=== PATIENT | female | born 1975 | race Caucasian/White ===

== ENCOUNTER 2017-10-11 11:58 | Emergency (ER) | payer SELFPAY ==
[~2017-10-11] VITALS: Ht 157.5 cm; Wt 81.7 kg
[~2017-10-11 11:58] MED LIST: ALBU8HFA2 INH; BENZ100A PO; CODGUAEL PO; CYCL10 PO; HYDACE5 PO; IBUP800 PO; NAPR500 PO; NAPR500EC PO; Norco 10-325 T1 EACH PO; ONDA4 PO; OXYACE5T PO
[2017-10-11] MEDS ORDERED: Robaxin500 MG PO (13:05)
== END 2017-10-11 13:15 | disposition home or self-care (01) ==
LOC: ER 11:58
DX: M54.16 Radiculopathy, lumbar region (principal); F17.200 Nicotine dependence, unspecified, uncomplicated
CPT/HCPCS: 81025; 96372; 99283; J1885

== ENCOUNTER 2018-12-17 12:38 | Emergency (ER) | payer BC ==
[~2018-12-17] VITALS: Ht 157.5 cm; Wt 83.9 kg
[~2018-12-17 12:38] MED LIST changes: +Robaxin500 MG PO
[2018-12-17] MEDS ORDERED: GABA300 PO (12:58)
[2018-12-17] MEDS ORDERED: Norco 5-325 Ta1 EACH PO (12:58)
[2018-12-17] MEDS ORDERED: Valtrex1000 MG PO (13:31)
== END 2018-12-17 13:36 | disposition home or self-care (01) ==
LOC: ER 12:38
DX: B00.1 Herpesviral vesicular dermatitis (principal); L25.9 Unspecified contact dermatitis, unspecified cause; Z79.899 Other long term (current) drug therapy; F17.210 Nicotine dependence, cigarettes, uncomplicated
CPT/HCPCS: 99282

== ENCOUNTER → 2020-12-16 | Outpatient (CLI) | payer BC ==
[~2020-12-16] MED LIST changes: +GABA300 PO; +Norco 5-325 Ta1 EACH PO; +Valtrex1000 MG PO
== END ==
LOC: LAB SHORT 07:45
DX: N93.8 Other specified abnormal uterine and vaginal bleeding (principal)
CPT/HCPCS: 88305

== ENCOUNTER 2020-12-29 08:45 | Day surgery (SDC) | payer BC ==
[~2020-12-29] VITALS: Ht 154.9 cm; Wt 78.5 kg
--- NOTE | 2020-12-29 09:37 | NUR ---
Ambulatory in Day Surgery. History, Chart, Medications and Allergies reviewed before start of procedure. Lungs clear T/O to Auscultation. Patient confirms NPO status and agrees with scheduled surgery.
--- NOTE | 2020-12-29 12:30 | NUR ---
Patient up to Ambulate independently. Gait steady. Discharge instructions reviewed with patient. Patient verbalizes understanding. Copy given to patient to take home. Patient States Post-Procedure ride home has been arranged. Discharged via wheelchair to private car for ride home. PT HAAD SCANT BLEEDING ON JESSICA PAD NEW PAD GIVEN PT IV DCD AND PT READY TO GO HOME
--- NOTE | 2020-12-30 07:41 | NUR ---
12/30/20 0741 Nehal Blanton: EDIT CHART.
== END 2020-12-29 22:44 | disposition home or self-care (01) ==
LOC: ORSCMMR 08:45 → ORD 09:30 → ORSCMMR 22:44
PROVIDERS: Obstetrics & Gynecology
PROC: 0U5B8ZZ Destruction of Endometrium, Via Natural or Artificial Opening Endoscopic (ICD-10-PCS; principal; 2020-12-29 09:30)
DX: N93.8 Other specified abnormal uterine and vaginal bleeding (principal); F17.210 Nicotine dependence, cigarettes, uncomplicated; Z79.899 Other long term (current) drug therapy; J44.9 Chronic obstructive pulmonary disease, unspecified; K21.9 Gastro-esophageal reflux disease without esophagitis; E66.9 Obesity, unspecified; Z68.32 Body mass index [BMI] 32.0-32.9, adult
CPT/HCPCS: J1100; J1885; J2250; J2405; J2704; J3010; J7120

== ENCOUNTER → 2022-03-23 | Outpatient (CLI) | payer BC | END | disposition home or self-care (01) | LOC: LAB SHORT 12:13 → LAB 12:13 | DX: E53.8 Deficiency of other specified B group vitamins (principal) | CPT/HCPCS: 82607; 82746 ==

== ENCOUNTER 2023-02-09 03:14 | Day surgery (SDC) | payer BC ==
[2023-02-09 14:20] VITALS: BP 150/94
[2023-02-10] MEDS ORDERED: BUPROPION XL150 M1 PO (11:33)
[2023-02-10] MEDS ORDERED: OXYC10TA19 PO (11:33)
== END 2023-02-09 14:20 | disposition home or self-care (01) ==
LOC: ATC 03:14
DX: A49.01 Methicillin susceptible Staphylococcus aureus infection, unspecified site (principal)
CPT/HCPCS: J0696

== ENCOUNTER 2023-02-11 11:06 | Day surgery (SDC) | payer BC ==
[~2023-02-11 11:06] MED LIST changes: +BUPROPION XL150 M1 PO; +OXYC10TA19 PO
[2023-02-11 11:42] VITALS: BP 132/90
== END 2023-02-11 11:47 | disposition home or self-care (01) ==
LOC: ATC 11:06
DX: T81.42XA Infection following a procedure, deep incisional surgical site, initial encounter (principal); B95.61 Methicillin susceptible Staphylococcus aureus infection as the cause of diseases classified elsewhere; Y83.8 Other surgical procedures as the cause of abnormal reaction of the patient, or of later complication, without mention of misadventure at the time of the procedure
CPT/HCPCS: 96374; J0696

== ENCOUNTER 2023-02-12 03:32 | Day surgery (SDC) | payer BC ==
[2023-02-12 10:57] VITALS: BP 120/88
[2023-02-13] MEDS ORDERED: CEFTRIAXONE2 G1 IV (14:27)
== END 2023-02-12 11:05 | disposition home or self-care (01) ==
LOC: ATC 03:32
DX: T81.42XA Infection following a procedure, deep incisional surgical site, initial encounter (principal)
CPT/HCPCS: J0696

== ENCOUNTER 2023-02-13 03:11 | Day surgery (SDC) | payer BC ==
[2023-02-13 11:58] VITALS: BP 142/85
[2023-02-13 12:37] LABS: BASOPHILS ABSOLUTE AUTO 0.08 K/mm3 (0.00-0.23); BASOPHILS PERCENT AUTO 1 % (0-2); EOSINOPHILS ABSOLUTE AUTO 0.55 K/mm3 (0.00-0.68); EOSINOPHILS PERCENT AUTO 7 % (0-6); Hematocrit 33.2 % (33.0-51.0); IMMATURE GRAN ABSOLUTE AUTO 0.03 K/mm3 (0.00-0.10); IMMATURE GRAN PERCENT AUTO 0 % (0-1); LYMPHOCYTES ABSOLUTE AUTO 1.22 K/mm3 (0.84-5.20); LYMPHOCYTES PERCENT AUTO 16 % (21-46); MONOCYTES ABSOLUTE AUTO 0.58 K/mm3 (0.16-1.47); MONOCYTES PERCENT AUTO 8 % (4-13); Mean Corpuscular HGB 30.6 pg (26.0-34.0); Mean Corpuscular HGB Conc 33.1 g/dL (31.5-36.5); Mean Corpuscular Volume 92 fL (80-100); Mean Platelet Volume 10.3 fL (9.1-12.4); NEUTROPHILS ABSOLUTE AUTO 5.11 K/mm3 (1.96-9.15); NEUTROPHILS PERCENT AUTO 67 % (41-73); Platelet Count 370 K/mm3 (150-400); RDW Coefficient Variation 12.6 % (11.7-14.2); RDW Standard Deviation 42.8 fL (35.1-46.3); White Blood Cell Count 7.57 K/mm3 (4.00-11.30)
[2023-02-13 13:01] LABS: Albumin, Blood 2.9 g/dL (3.4-5.0); Albumin/Globulin Ratio 0.7 (0.8-1.8); Bilirubin, Total 0.3 mg/dL (0.1-1.0); Bun/Creatinine Ratio 15.5 (12.0-20.0); C-REACTIVE PROTEIN, EXT RANGE 0.767 mg/dL (0.000-0.300); Calcium, Blood 8.7 mg/dL (8.5-10.1); Creatinine, Blood 0.77 mg/dL (0.40-1.00); Globulin, Blood 3.9 g/dL (2.2-4.0); Total Protein, Blood 6.8 g/dL (6.4-8.2)
[2023-02-13] MEDS ORDERED: CEFTRIAXONE2 G1 IV (14:27)
== END 2023-02-13 12:00 | disposition home or self-care (01) ==
LOC: ATC 03:11
PROVIDERS: Specialist
DX: T81.42XA Infection following a procedure, deep incisional surgical site, initial encounter (principal)
CPT/HCPCS: 80053; 85025; 85651; 86140; 96374; J0696

== ENCOUNTER 2023-02-13 10:53 | Day surgery (SDC) | payer BC ==
[2023-02-13] MEDS ORDERED: CEFTRIAXONE2 G1 IV (14:27)
== END 2023-02-13 22:41 | disposition home or self-care (01) ==
LOC: WOUND 10:53
DX: T81.41XD Infection following a procedure, superficial incisional surgical site, subsequent encounter (principal); T81.31XD Disruption of external operation (surgical) wound, not elsewhere classified, subsequent encounter
CPT/HCPCS: G0463

== ENCOUNTER 2023-02-14 03:54 | Day surgery (SDC) | payer BC ==
[~2023-02-14 03:54] MED LIST changes: +CEFTRIAXONE2 G1 IV
[2023-02-14 10:57] VITALS: BP 139/88
== END 2023-02-14 11:03 | disposition home or self-care (01) ==
LOC: ATC 03:54
DX: T81.42XA Infection following a procedure, deep incisional surgical site, initial encounter (principal); B95.61 Methicillin susceptible Staphylococcus aureus infection as the cause of diseases classified elsewhere; Z87.891 Personal history of nicotine dependence; Z79.899 Other long term (current) drug therapy
CPT/HCPCS: 96374; J0696

== ENCOUNTER 2023-02-15 03:37 | Day surgery (SDC) | payer BC ==
[2023-02-15 09:54] VITALS: BP 118/84
== END 2023-02-15 09:54 | disposition home or self-care (01) ==
LOC: ATC 03:37
DX: T81.42XA Infection following a procedure, deep incisional surgical site, initial encounter (principal); B95.61 Methicillin susceptible Staphylococcus aureus infection as the cause of diseases classified elsewhere; Z79.899 Other long term (current) drug therapy
CPT/HCPCS: 96374; J0696

== ENCOUNTER 2023-02-16 02:46 | Day surgery (SDC) | payer BC ==
[2023-02-16 10:14] VITALS: BP 126/78; BP 138/84
== END 2023-02-16 10:25 | disposition home or self-care (01) ==
LOC: ATC 02:46
DX: T81.42XA Infection following a procedure, deep incisional surgical site, initial encounter (principal); A49.01 Methicillin susceptible Staphylococcus aureus infection, unspecified site
CPT/HCPCS: 96374; J0696

== ENCOUNTER → 2023-02-16 | Day surgery (SDC) | payer BC | LOC: WOUND 03:13 | DX: T81.31XD Disruption of external operation (surgical) wound, not elsewhere classified, subsequent encounter (principal); T81.41XD Infection following a procedure, superficial incisional surgical site, subsequent encounter; Y83.8 Other surgical procedures as the cause of abnormal reaction of the patient, or of later complication, without mention of misadventure at the time of the procedure | CPT/HCPCS: A9270 ==

== ENCOUNTER 2023-02-17 00:59 | Day surgery (SDC) | payer BC | END 2023-02-17 11:00 | disposition home or self-care (01) | LOC: ATC 00:59 | DX: A49.01 Methicillin susceptible Staphylococcus aureus infection, unspecified site (principal) | CPT/HCPCS: 96374; J0696 ==

== ENCOUNTER 2023-02-18 06:21 | Day surgery (SDC) | payer BC ==
[2023-02-18 11:05] VITALS: BP 130/78
== END 2023-02-18 11:10 | disposition home or self-care (01) ==
LOC: ATC 06:21
DX: T81.42XA Infection following a procedure, deep incisional surgical site, initial encounter (principal); A49.01 Methicillin susceptible Staphylococcus aureus infection, unspecified site
CPT/HCPCS: 96374; J0696

== ENCOUNTER 2023-02-22 02:56 | Day surgery (SDC) | payer BC ==
[2023-02-22 10:52] VITALS: BP 136/96
== END 2023-02-22 11:13 | disposition home or self-care (01) ==
LOC: ATC 02:56
DX: T81.42XA Infection following a procedure, deep incisional surgical site, initial encounter (principal); B95.61 Methicillin susceptible Staphylococcus aureus infection as the cause of diseases classified elsewhere
CPT/HCPCS: 96365; J0696

== ENCOUNTER 2023-02-24 06:05 | Day surgery (SDC) | payer BC ==
[2023-02-24 10:20] VITALS: BP 138/86
== END 2023-02-24 10:43 | disposition home or self-care (01) ==
LOC: ATC 06:05
DX: T81.42XA Infection following a procedure, deep incisional surgical site, initial encounter (principal); B95.61 Methicillin susceptible Staphylococcus aureus infection as the cause of diseases classified elsewhere; Z87.891 Personal history of nicotine dependence; Z79.899 Other long term (current) drug therapy
CPT/HCPCS: J0696

== ENCOUNTER 2023-02-25 02:44 | Day surgery (SDC) | payer BC ==
[2023-02-25 10:35] VITALS: BP 128/78
== END 2023-02-25 10:58 | disposition home or self-care (01) ==
LOC: ATC 02:44
DX: T81.42XA Infection following a procedure, deep incisional surgical site, initial encounter (principal); B95.61 Methicillin susceptible Staphylococcus aureus infection as the cause of diseases classified elsewhere
CPT/HCPCS: J0696

== ENCOUNTER 2023-02-28 02:58 | Day surgery (SDC) | payer BC ==
[2023-02-28 08:10] VITALS: BP 130/80
== END 2023-02-28 08:25 | disposition home or self-care (01) ==
LOC: ATC 02:58
DX: A49.01 Methicillin susceptible Staphylococcus aureus infection, unspecified site (principal); Z87.891 Personal history of nicotine dependence
CPT/HCPCS: J0696

== ENCOUNTER 2023-03-12 01:18 | Day surgery (SDC) | payer BC ==
[2023-03-12 10:40] VITALS: BP 148/97
== END 2023-03-12 11:04 | disposition home or self-care (01) ==
LOC: ATC 01:18
DX: T81.42XA Infection following a procedure, deep incisional surgical site, initial encounter (principal); B95.61 Methicillin susceptible Staphylococcus aureus infection as the cause of diseases classified elsewhere; Z87.891 Personal history of nicotine dependence; Z79.899 Other long term (current) drug therapy
CPT/HCPCS: 96365; J0696

== ENCOUNTER 2023-03-13 03:13 | Day surgery (SDC) | payer BC ==
[2023-03-13 10:50] VITALS: BP 140/90
[2023-03-13 11:28] LABS: BASOPHILS ABSOLUTE AUTO 0.05 K/mm3 (0.00-0.23); BASOPHILS PERCENT AUTO 1 % (0-2); EOSINOPHILS ABSOLUTE AUTO 0.53 K/mm3 (0.00-0.68); EOSINOPHILS PERCENT AUTO 9 % (0-6); Hematocrit 37.4 % (33.0-51.0); Hemoglobin 12.5 g/dL (11.5-16.0); IMMATURE GRAN ABSOLUTE AUTO 0.01 K/mm3 (0.00-0.10); IMMATURE GRAN PERCENT AUTO 0 % (0-1); LYMPHOCYTES ABSOLUTE AUTO 1.32 K/mm3 (0.84-5.20); LYMPHOCYTES PERCENT AUTO 23 % (21-46); MONOCYTES ABSOLUTE AUTO 0.49 K/mm3 (0.16-1.47); MONOCYTES PERCENT AUTO 9 % (4-13); Mean Corpuscular HGB 29.6 pg (26.0-34.0); Mean Corpuscular HGB Conc 33.4 g/dL (31.5-36.5); Mean Corpuscular Volume 88 fL (80-100); Mean Platelet Volume 10.3 fL (9.1-12.4); NEUTROPHILS ABSOLUTE AUTO 3.32 K/mm3 (1.96-9.15); NEUTROPHILS PERCENT AUTO 58 % (41-73); Platelet Count 281 K/mm3 (150-400); RDW Coefficient Variation 12.5 % (11.7-14.2); RDW Standard Deviation 40.3 fL (35.1-46.3); Red Blood Cell Count 4.23 M/mm3 (3.80-5.20); White Blood Cell Count 5.72 K/mm3 (4.00-11.30)
[2023-03-13 11:49] LABS: C-REACTIVE PROTEIN, EXT RANGE <0.290 mg/dL (0.000-0.300)
[2023-03-13 11:51] LABS: Alanine Aminotransfer (ALT/SGP 23 U/L (12-78); Albumin, Blood 3.3 g/dL (3.4-5.0); Albumin/Globulin Ratio 0.9 (0.8-1.8); Alk Phos 61 U/L (50-136); Anion Gap 3 mmol/L (6-16); Aspartate Aminotrans (AST/SGOT 20 U/L (12-37); Bilirubin, Total 0.4 mg/dL (0.1-1.0); Blood Urea Nitrogen 8 mg/dL (8-24); CO2, Blood 27 mmol/L (21-32); Calcium, Blood 8.5 mg/dL (8.5-10.1); Chloride, Blood 110 mmol/L (98-108); Creatinine, Blood 0.67 mg/dL (0.40-1.00); Globulin, Blood 3.8 g/dL (2.2-4.0); Glomerular Filtration Rate 107 (60-); Glucose, Blood 114 mg/dL (70-99); Sodium, Blood 140 mmol/L (136-145); Total Protein, Blood 7.1 g/dL (6.4-8.2)
== END 2023-03-13 11:30 | disposition home or self-care (01) ==
LOC: ATC 03:13
PROVIDERS: Specialist
DX: T81.42XA Infection following a procedure, deep incisional surgical site, initial encounter (principal); A49.01 Methicillin susceptible Staphylococcus aureus infection, unspecified site; Y83.9 Surgical procedure, unspecified as the cause of abnormal reaction of the patient, or of later complication, without mention of misadventure at the time of the procedure
CPT/HCPCS: 80053; 85025; 85651; 86140; 96365; J0696

== ENCOUNTER 2023-03-14 04:46 | Day surgery (SDC) | payer BC ==
[2023-03-14 08:52] VITALS: BP 114/70
== END 2023-03-14 09:12 | disposition home or self-care (01) ==
LOC: ATC 04:46
DX: T81.42XA Infection following a procedure, deep incisional surgical site, initial encounter (principal); B95.61 Methicillin susceptible Staphylococcus aureus infection as the cause of diseases classified elsewhere; Z87.891 Personal history of nicotine dependence; Z79.899 Other long term (current) drug therapy
CPT/HCPCS: 96365; J0696

== ENCOUNTER 2023-03-15 01:10 | Day surgery (SDC) | payer BC ==
[2023-03-15 11:09] VITALS: BP 145/86
== END 2023-03-15 11:27 | disposition home or self-care (01) ==
LOC: ATC 01:10
DX: T81.42XA Infection following a procedure, deep incisional surgical site, initial encounter (principal); A49.01 Methicillin susceptible Staphylococcus aureus infection, unspecified site
CPT/HCPCS: 96365; J0696

== ENCOUNTER 2023-03-16 00:57 | Day surgery (SDC) | payer BC | END 2023-03-16 22:37 | disposition home or self-care (01) | LOC: WOUND 00:57 | DX: T81.31XD Disruption of external operation (surgical) wound, not elsewhere classified, subsequent encounter (principal); T81.41XD Infection following a procedure, superficial incisional surgical site, subsequent encounter; Y83.8 Other surgical procedures as the cause of abnormal reaction of the patient, or of later complication, without mention of misadventure at the time of the procedure | CPT/HCPCS: A9270; G0463 ==

== ENCOUNTER 2023-03-16 01:48 | Day surgery (SDC) | payer BC ==
[2023-03-16 09:24] VITALS: BP 160/90
== END 2023-03-16 09:56 | disposition home or self-care (01) ==
LOC: ATC 01:48
DX: T81.42XA Infection following a procedure, deep incisional surgical site, initial encounter (principal); A49.01 Methicillin susceptible Staphylococcus aureus infection, unspecified site
CPT/HCPCS: 96365; J0696

== ENCOUNTER 2023-03-23 03:57 | Day surgery (SDC) | payer BC | END 2023-03-23 22:33 | disposition home or self-care (01) | LOC: WOUND 03:57 | DX: T81.31XD Disruption of external operation (surgical) wound, not elsewhere classified, subsequent encounter (principal); T81.41XD Infection following a procedure, superficial incisional surgical site, subsequent encounter; Y83.9 Surgical procedure, unspecified as the cause of abnormal reaction of the patient, or of later complication, without mention of misadventure at the time of the procedure; X58.XXXD Exposure to other specified factors, subsequent encounter | CPT/HCPCS: G0463 ==

== ENCOUNTER → 2023-09-18 | Outpatient (CLI) | payer BC ==
[2023-09-18 11:26] LABS: BASOPHILS ABSOLUTE AUTO 0.07 K/mm3 (0.00-0.23); BASOPHILS PERCENT AUTO 1 % (0-2); EOSINOPHILS PERCENT AUTO 1 % (0-6); Hematocrit 34.9 % (33.0-51.0); Hemoglobin 11.9 g/dL (11.5-16.0); IMMATURE GRAN ABSOLUTE AUTO 0.15 K/mm3 (0.00-0.10); IMMATURE GRAN PERCENT AUTO 1 % (0-1); LYMPHOCYTES ABSOLUTE AUTO 2.52 K/mm3 (0.84-5.20); LYMPHOCYTES PERCENT AUTO 21 % (21-46); MONOCYTES ABSOLUTE AUTO 1.14 K/mm3 (0.16-1.47); MONOCYTES PERCENT AUTO 9 % (4-13); Mean Corpuscular HGB 30.7 pg (26.0-34.0); Mean Corpuscular HGB Conc 34.1 g/dL (31.5-36.5); Mean Corpuscular Volume 90 fL (80-100); Mean Platelet Volume 10.6 fL (9.1-12.4); NEUTROPHILS ABSOLUTE AUTO 8.23 K/mm3 (1.96-9.15); NEUTROPHILS PERCENT AUTO 68 % (41-73); Platelet Count 434 K/mm3 (150-400); RDW Coefficient Variation 16.2 % (11.7-14.2); RDW Standard Deviation 52.6 fL (35.1-46.3); Red Blood Cell Count 3.87 M/mm3 (3.80-5.20); White Blood Cell Count 12.21 K/mm3 (4.00-11.30)
[2023-09-18 11:37] LABS: Albumin, Blood 3.6 g/dL (3.4-5.0); Albumin/Globulin Ratio 0.8 (0.8-1.8); Bilirubin, Total 0.7 mg/dL (0.1-1.0); Bun/Creatinine Ratio 32.6 (12.0-20.0); Calcium, Blood 9.4 mg/dL (8.5-10.1); Creatinine, Blood 1.72 mg/dL (0.40-1.00); Globulin, Blood 4.5 g/dL (2.2-4.0); Total Protein, Blood 8.1 g/dL (6.4-8.2)
== END | disposition home or self-care (01) ==
LOC: LAB 11:20 → LAB SHORT 11:20
PROVIDERS: Chiropractor
DX: R11.2 Nausea with vomiting, unspecified (principal)
CPT/HCPCS: 80053; 83690; 85025

== ENCOUNTER 2023-09-23 18:35 | Emergency (ER) | payer BC ==
[~2023-09-23] VITALS: Ht 157.5 cm; Wt 76.7 kg
[2023-09-23 18:56] VITALS: BP 111/74
[2023-09-23 19:39] LABS: Source, Urine Clean Catch
[2023-09-23 19:41] LABS: Appearance, Urine Clear (Clear); Bilirubin, Urine Neg (Neg); Blood, Urine 2+ (Neg); Color, Urine Yellow (P-Yellow); Glucose Qualitative, Urine Neg (Neg); Ketones, Urine 1+ (Neg); Leukocyte Esterase, Urine 1+ (Neg); Nitrite, Urine Neg (Neg); Protein, Urine 2+ (Neg); Specific Gravity, Urine 1.025 (1.003-1.022); Urobilinogen, Urine NORM (Normal)
[2023-09-23 19:51] LABS: Bacteria Many /hpf; Mucus Light (0-Heavy); Squamous Epithelial Cells Many /hpf (Few)
[2023-09-23] MEDS ORDERED: CEPH500 PO (20:51)
[2023-09-23] MEDS ORDERED: Diflucan150 MG PO (20:51)
== END 2023-09-23 22:36 | disposition home or self-care (01) ==
LOC: ER 18:35
PROVIDERS: Student in an Organized Health Care Education/Training Program
DX: N30.01 Acute cystitis with hematuria (principal); F17.200 Nicotine dependence, unspecified, uncomplicated; Z86.19 Personal history of other infectious and parasitic diseases; Z79.899 Other long term (current) drug therapy
CPT/HCPCS: 81001; 87086; 99283; A9270; J0696; J7030

== ENCOUNTER 2023-09-27 03:26 | Inpatient (IN) | payer BC ==
[~2023-09-27] VITALS: Ht 157.5 cm; Wt 77.6 kg
[~2023-09-27 03:26] MED LIST changes: +CEPH500 PO; +Diflucan150 MG PO
[2023-09-27 03:59] LABS: BASOPHILS ABSOLUTE AUTO 0.11 K/mm3 (0.00-0.23); BASOPHILS PERCENT AUTO 1 % (0-2); EOSINOPHILS PERCENT AUTO 2 % (0-6); Hematocrit 36.3 % (33.0-51.0); Hemoglobin 12.8 g/dL (11.5-16.0); IMMATURE GRAN ABSOLUTE AUTO 0.12 K/mm3 (0.00-0.10); IMMATURE GRAN PERCENT AUTO 1 % (0-1); LYMPHOCYTES ABSOLUTE AUTO 4.46 K/mm3 (0.84-5.20); LYMPHOCYTES PERCENT AUTO 27 % (21-46); MONOCYTES PERCENT AUTO 12 % (4-13); Mean Corpuscular HGB 30.8 pg (26.0-34.0); Mean Corpuscular HGB Conc 35.3 g/dL (31.5-36.5); Mean Corpuscular Volume 88 fL (80-100); Mean Platelet Volume 12.5 fL (9.1-12.4); NEUTROPHILS ABSOLUTE AUTO 9.59 K/mm3 (1.96-9.15); NEUTROPHILS PERCENT AUTO 58 % (41-73); Platelet Count 344 K/mm3 (150-400); RDW Coefficient Variation 15.9 % (11.7-14.2); RDW Standard Deviation 50.3 fL (35.1-46.3); Red Blood Cell Count 4.15 M/mm3 (3.80-5.20); White Blood Cell Count 16.48 K/mm3 (4.00-11.30)
[2023-09-27] MEDS ORDERED: HYDCHL25 PO (03:59)
[2023-09-27] MEDS ORDERED: OMEP20ER PO (03:59)
[2023-09-27] MEDS ORDERED: HYDROCODONE-AC1 EA19 PO (04:00)
[2023-09-27] MEDS ORDERED: Ventolin/Prove6.7 GM INH (04:00)
[2023-09-27 04:20] LABS: Albumin, Blood 3.4 g/dL (3.4-5.0); Albumin/Globulin Ratio 0.9 (0.8-1.8); Bilirubin, Total 0.7 mg/dL (0.1-1.0); Bun/Creatinine Ratio 21.2 (12.0-20.0); Creatinine, Blood 2.08 mg/dL (0.40-1.00); Globulin, Blood 3.6 g/dL (2.2-4.0); Potassium, Blood 3.3 mmol/L (3.5-5.5)
[2023-09-27 05:20] LABS: Source, Urine Clean Catch
[2023-09-27 06:05] LABS: Appearance, Urine Clear (Clear); Bilirubin, Urine Neg (Neg); Blood, Urine Neg (Neg); Color, Urine Yellow (P-Yellow); Glucose Qualitative, Urine Neg (Neg); Ketones, Urine Neg (Neg); Leukocyte Esterase, Urine 1+ (Neg); Nitrite, Urine Neg (Neg); Protein, Urine 1+ (Neg); Specific Gravity, Urine 1.025 (1.003-1.022); Urobilinogen, Urine NORM (Normal)
[2023-09-27 06:25] LABS: Bacteria Rare /hpf; Red Blood Cells, Urine Not Seen /hpf (0-2); Squamous Epithelial Cells Few /hpf (Few)
[2023-09-27 12:31] VITALS: BP 116/62
[2023-09-27] MEDS ORDERED: Prozac20 MG PO (12:42)
[2023-09-27] MEDS ORDERED: LISI20 PO (12:42)
[2023-09-27 12:56] VITALS: BP 110/61
--- NOTE | 2023-09-27 13:55 | NUR ---
PT ARRIVAL... PT ARRIVED TO THE UNIT AT 1230. PT'S VS STABLE. SHE IS ON RA. PT IS A&Ox4 AND IND IN THE ROOM. PT C/O OF 7/10 EPIGASTRIC PAIN AND SHE WAS MEDICATED PER EMAR WITH GOOD RESULTS. SHE DENIES ANY N/V/D AT THIS TIME. SHE WAS ABLE TO SELF TRANSFER FROM THE RGLIDE TO THE BED. PLANS FOR DR. GOMEZ TO SEE HER TONIGHT AND POSSIBLE EGD TOMORROW. WILL CONTINUE TO MONITOR.
[2023-09-27 15:53] LABS: Hematocrit 30.7 % (33.0-51.0); Hemoglobin 10.7 g/dL (11.5-16.0)
[2023-09-27 16:05] VITALS: BP 104/56
[2023-09-27 16:18] LABS: Bun/Creatinine Ratio 23.8 (12.0-20.0); Calcium, Blood 8.3 mg/dL (8.5-10.1); Creatinine, Blood 1.43 mg/dL (0.40-1.00); Potassium, Blood 4.2 mmol/L (3.5-5.5)
--- NOTE | 2023-09-27 17:52 | NUR ---
SHIFT SUMMARY... NO ACUTE NEGATIVE CHANGES NOTED THIS SHIFT. PTs VSS. THE PT HAS BEEN IND IN THE ROOM. PT HAS BEEN MEDICATED FOR PAIN PER EMAR WITH GOOD RESULTS. DR. GOMEZ WAS IN THE ROOM TO ASSESS THE PT THIS AFTERNOON. PLANS FOR AN EGD TOMORROW AFTEROON. PT IS TO ONLY HAVE WATER AFTER MIDNIGHT, NPO AT 1100 NO REDS. PT HAS DENIED ANY N/V/D SINCE ADMIT. WILL CONTINUE TO MONITOR UNTIL REPORT IS GIVEN TO ONCOMING RN.
--- NOTE | 2023-09-27 19:15 | NUR ---
ASSUMPTION OF CARE: RECEIVED REPORT FROM BRENT OCONNELL. PT ALERT AND ORIENTED TO TIME, PERSON, PLACE AND SITUATION. PT RESTING IN BED. ABLE TO ANSWER QUESTIONS APPROPRIATELY AND MAKE NEEDS KNOWN. PT ON RA WITH SPO2 >95%. DENIES SOB. LUNG SOUNDS CLEAR. PRECIPITATOR IN PLACE, SR/SB WITH HR 50'S-60'S. SBP 90'S-100'S. DENIES CHEST PAIN OR PRESSURE. PT ENDORSES PAIN IN UPPER ABDOMEN, MEDICATED PER MAR WITH RELIEF, STATES SHE HAS NAUSEA AFTER PAIN MEDICATION. SPOKE WITH HOSPITALIST AND RECEIVED NEW ORDER FOR DIFFERENT PAIN MEDICATION. PT ABLE TO AMBULATE TO BATHROOM INDEPENDENTLY. TOLERATING PO INTAKE. LR INFUSING AT 75ML/HR. PIV TO RAC, INTACT AND INFUSING. FAMILY MEMBER AT BEDSIDE, UPDATED TO PLAN OF CARE. CALL LIGHT IN REACH, BED LOW AND LOCKED.
[2023-09-27 20:00] VITALS: BP 90/62
[2023-09-27 23:41] VITALS: BP 129/82
[2023-09-28] VITALS (22 sets, daily range): BP systolic 87–123; BP diastolic 44–78
[2023-09-28 04:39] LABS: Hematocrit 28.3 % (33.0-51.0); Hemoglobin 9.7 g/dL (11.5-16.0); Mean Corpuscular HGB 30.6 pg (26.0-34.0); Mean Corpuscular HGB Conc 34.3 g/dL (31.5-36.5); Mean Corpuscular Volume 89 fL (80-100); Platelet Count 229 K/mm3 (150-400); RDW Coefficient Variation 16.4 % (11.7-14.2); RDW Standard Deviation 54.1 fL (35.1-46.3); Red Blood Cell Count 3.17 M/mm3 (3.80-5.20); White Blood Cell Count 7.36 K/mm3 (4.00-11.30)
[2023-09-28 05:09] LABS: Magnesium, Blood 2.2 mg/dL (1.6-2.4)
[2023-09-28 05:10] LABS: Albumin, Blood 2.4 g/dL (3.4-5.0); Anion Gap 3 mmol/L (6-16); Blood Urea Nitrogen 31 mg/dL (8-24); Bun/Creatinine Ratio 24.6 (12.0-20.0); CO2, Blood 29 mmol/L (21-32); Calcium, Blood 8.4 mg/dL (8.5-10.1); Chloride, Blood 107 mmol/L (98-108); Creatinine, Blood 1.26 mg/dL (0.40-1.00); Glomerular Filtration Rate 52 (60-); Glucose, Blood 88 mg/dL (70-99); Phosphorus, Blood 4.1 mg/dL (2.5-4.9); Potassium, Blood 4.2 mmol/L (3.5-5.5); Sodium, Blood 139 mmol/L (136-145)
--- NOTE | 2023-09-28 06:27 | NUR ---
SHIFT SUMMARY: NO ACUTE CHANGES T/O THE SHIFT. PT REMAINS ALERT AND ORIENTED X4. ABLE TO ANSWER QUESTIONS AND MAKE NEEDS KNOWN. PT ABLE TO REST T/O THE SHIFT. REMAINS ON RA WITH SPO2 >95%. DENIES SOB. MARKETING PROJECT LEAD REMAINS IN PLACE, SB/SR WITH HR 50'S-70'S. SBP 100'S. DENIES CHEST PAIN OR PRESSURE. PT ENDORSES PAIN IN EPIGASTRIC REGION, MEDICATED PER MAR WITH RELIEF. TOLERATING PO INTAKE. WATER ONLY UNTIL [address] GOMEZ THEN NPO FOR PLANS FOR ENDOSCOPY THIS AFTERNOON. ABLE TO AMBULATE TO TOILET INDEPENDENTLY. POWERGLIDE TO STEFANIE INFUSING LR AT 75 ML/HR. REMAINS AT BEDSIDE T/O THE NIGHT. CALL LIGHT IN REACH.
--- NOTE | 2023-09-28 11:50 | NUR ---
am note this rn assumed care at 0700. vital signs stable. sr 60-80s. patient is on room air. patient is alert and oriented x4. perrla. patient is able to make needs known and uses call light appropriately. patient is independent in the room. patient reports pain in upper abd and chest area, received pain meds per emar 8/10. upon reassessment patient pain is at an acceptable level 6/10. see shift assessment for further detials. md borja in to see patient and patient made medical status. this rn informed patient and family. plan of care is up to date.
--- NOTE | 2023-09-28 12:34 | NUR ---
LEFT FOR EGD patient left for EGD.
--- NOTE | 2023-09-28 12:42 | NUR ---
PATIENT IN PRE-OP DAY SURGERY FOR EGD WITH DR. GOMEZ. NO HCG INDICATED. PATIENT STATES SHE HAS HAD SURGICAL STERILIZATION. AT BEDSIDE.
--- NOTE | 2023-09-28 13:28 | NUR ---
09/28/23 1328 Brii Maldonado HISTORY, CHART, MEDICATIONS AND ALLERGIES REVIEWED BEFORE START OF PROCEDURE. PATIENT CONFIRMS NPO STATUS AND AGREES WITH SCHEDULED PROCEDURE. 3-LEAD EKG REVIEWED WITH PHYSICIAN PRIOR TO START OF PROCEDURE. MONITOR INTACT WITH CONTINUOUS PULSE OXIMETRY,CAPNOGRAPHY, 3-LEAD EKG, INTERMITTENT BP. SUPPLEMENTAL O2 TO BE TITRATED THROUGHOUT PROCEDURE TO MAINTAIN O2 SATURATION ABOVE 90%. PATIENT DETERMINED TO BE ASA APPROPRIATE FOR PROPOFOL SEDATION PRIOR TO START OF PROCEDURE BY .SBP 90'S-LR 500 CC BOLUS GIVEN.PT ADMITTED TO DIFFICULTY BREATHING SINCE INTUBATED 01/2023.PT DENIES SOB OR HOARSE VOICE. THIS CASE REVIEWED BY DR. MARRERO TO PROCEED WITH RN SEDATION.
--- NOTE | 2023-09-28 14:08 | NUR ---
DR GOMEZ AT BEDSIDE IN DAY SURGERY GIVING PATIENT AND HER SPOUSE RESULTS FROM EGD. VSS. BREATING RA. NO C/O VERBALIZED. WILL TRANSFER TO ROOM WHEN DR. GOMEZ FINISHED SPEAKING WITH PATIENT.
--- NOTE | 2023-09-28 14:19 | NUR ---
BACK FROM EGD patient back from edg. patient vitals stable. sr 78.
[2023-09-28] MEDS ORDERED: METO10 PO (16:41)
[2023-09-28] MEDS ORDERED: PANT40 PO (16:42)
[2023-09-28] MEDS ORDERED: SUCR1 PO (16:42)
--- NOTE | 2023-09-28 17:39 | NUR ---
DISCHARGE this rn went over new medications with patient and patient . this rn went over diet, soft bite sized, with patient and patient . patient and patient verbalized understanding of new medication, diet, and already had an appointment scheduled with pcp. patient left with all belongings and in no distress. patient medications faxed to [facility], got a busy singal this rn and medical charge entry specialist tried to call them in and got a dial tone. patient stated they would use [facility] then. this rn faxed medications to [facility].
== END 2023-09-28 17:40 | disposition home or self-care (01) | DRG 381 ==
LOC: ER 03:26 → ICUE 08:33
PROVIDERS: Emergency Medicine; Internal Medicine Gastroenterology; Physician Assistant; ADMIT Internal Medicine
PROC: 0DJ08ZZ Inspection of Upper Intestinal Tract, Via Natural or Artificial Opening Endoscopic (ICD-10-PCS; principal; 2023-09-28 17:45)
DX: K22.10 Ulcer of esophagus without bleeding (principal); K80.10 Calculus of gallbladder with chronic cholecystitis without obstruction; N17.9 Acute kidney failure, unspecified; I12.9 Hypertensive chronic kidney disease with stage 1 through stage 4 chronic kidney disease, or unspecified chronic kidney disease; N18.30 Chronic kidney disease, stage 3 unspecified; E87.6 Hypokalemia; G89.29 Other chronic pain; M54.9 Dorsalgia, unspecified; D64.9 Anemia, unspecified; F17.210 Nicotine dependence, cigarettes, uncomplicated; F32.A Depression, unspecified; G62.9 Polyneuropathy, unspecified; J44.9 Chronic obstructive pulmonary disease, unspecified; K44.9 Diaphragmatic hernia without obstruction or gangrene; B96.81 Helicobacter pylori [H. pylori] as the cause of diseases classified elsewhere; E86.1 Hypovolemia; I95.9 Hypotension, unspecified; Z86.010 Personal history of colon polyps; Z80.0 Family history of malignant neoplasm of digestive organs
CPT/HCPCS: 36415; 71046; 74177; 80048; 80053; 80069; 81001; 83690; 83735; 84484; 85014; 85018; 85025; 85027; 87086; 93005; 93010; 96361; 96365-59; 96366; 96375; 96376; 99285-25; A9270; C1751; C9113; J0780; J1170; J2001; J2250; J2405; J2704; J3010; J3480; J7030; J7050; J7120; Q9967

== ENCOUNTER 2024-01-01 07:25 | Day surgery (SDC) | payer BC ==
[~2024-01-01] VITALS: Ht 157.5 cm; Wt 85.9 kg
[~2024-01-01 07:25] MED LIST changes: +HYDCHL25 PO; +HYDROCODONE-AC1 EA19 PO; +LISI20 PO; +METO10 PO; +OMEP20ER PO; +PANT40 PO; +Prozac20 MG PO; +SUCR1 PO; +Ventolin/Prove6.7 GM INH
[2024-01-01] MEDS ORDERED: propofoL 50 ML IV ONE (07:32)
[2024-01-01] MEDS ORDERED: Lactated Ringer's 1,000 ML IV ONE ×2 (07:32→08:12)
[2024-01-01] MEDS ORDERED: Ipratropium/Albuterol SulF 2.5-0.5MG/3 ML Amp ONE (08:14)
[2024-01-01 09:21] VITALS: BP 106/67
== END 2024-01-01 09:36 | disposition home or self-care (01) ==
LOC: ORSCSDS 07:25
PROVIDERS: Internal Medicine Gastroenterology
PROC: 0DB58ZX Excision of Esophagus, Via Natural or Artificial Opening Endoscopic, Diagnostic (ICD-10-PCS; principal; 2024-01-01 08:45)
DX: Z87.11 Personal history of peptic ulcer disease (principal); I10 Essential (primary) hypertension; K44.9 Diaphragmatic hernia without obstruction or gangrene
CPT/HCPCS: 88305; J2704; J7120

== ENCOUNTER 2024-06-27 13:01 | Day surgery (SDC) | payer BC ==
[2024-06-27] VITALS (11 sets, daily range): BP systolic 107–133; BP diastolic 69–112
[~2024-06-27] VITALS: Ht 157.5 cm; Wt 91.8 kg
[~2024-06-27 13:01] MED LIST changes: +NS 500 ML IV SCH; +OMEP20ER; +PROTONIX40 M9 PO
--- NOTE | 2024-06-27 13:20 | NUR ---
Ambulatory in Day Surgery. History, Chart, Medications and Allergies reviewed before start of procedure. Lungs clear T/O to Auscultation. Patient confirms NPO status and agrees with scheduled surgery. Pre-Op teaching done. Pt verbalizes understanding. Patient States Post-Procedure ride home has been arranged.
[2024-06-27] MEDS ORDERED: NS 500 ML IV SCH (13:25)
[2024-06-27] MEDS ORDERED: propofoL 20 ML IV ONE (13:25)
--- NOTE | 2024-06-27 13:49 | NUR ---
06/27/24 3722 Hernan Douglas CONFIRMED AND REVIEWED H&P, MEDCICATIONS, ALLERGIES, MEDICAL HISTORY, RESPIRATORY HISTORY, VITAL SIGNS, 3-LEAD EKG, CONSENTS, AND PHYSICIAN ORDERS. PATIENT CONFIRMS NPO STATUS AND AGREES WITH SCHEDULED PROCEDURE. MONITOR INTACT WITH CONTINUOUS PULSE OXIMETRY, CAPNOGRAPHY, 3-LEAD EKG, INTERMITTENT BP. SUPPLEMENTAL O2 TO BE TITRATED THROUGHOUT PROCEDURE TO MAINTAIN O2 SATURATION ABOVE 90%. PATIENT DETERMINED TO BE ASA APPROPRIATE FOR PROPOFOL SEDATION PRIOR TO START OF PROCEDURE BY DR. PERALTA.
--- NOTE | 2024-06-27 14:42 | NUR ---
DISCHARGE NOTE PT A&OX4, BREATHINGRA, VSS, NO COMPLAINTS. ABDOMEN SOFT AND NON TENDER. PT TOLERATING PO FLUIDS. Discharge instructions reviewed with patient. Patient verbalizes understanding. Copy given to patient to take home. Discharged via wheelchair to private car for ride home.
== END 2024-06-27 22:54 | disposition home or self-care (01) ==
LOC: ORSCMMR 13:01 → ORSCSDS 13:15 → ORSCMMR 14:15 → ORSCSDS 14:15 → ORSCMMR 22:54
PROVIDERS: Internal Medicine Gastroenterology
PROC: 0DJ08ZZ Inspection of Upper Intestinal Tract, Via Natural or Artificial Opening Endoscopic (ICD-10-PCS; principal; 2024-06-27 14:15)
DX: K20.0 Eosinophilic esophagitis (principal); K44.9 Diaphragmatic hernia without obstruction or gangrene; I12.9 Hypertensive chronic kidney disease with stage 1 through stage 4 chronic kidney disease, or unspecified chronic kidney disease; N18.30 Chronic kidney disease, stage 3 unspecified; J44.9 Chronic obstructive pulmonary disease, unspecified; G62.9 Polyneuropathy, unspecified; Z79.899 Other long term (current) drug therapy; Z87.891 Personal history of nicotine dependence; Z68.33 Body mass index [BMI] 33.0-33.9, adult
CPT/HCPCS: J2704; J7040

== ENCOUNTER 2024-09-19 06:18 | Day surgery (SDC) | payer BC ==
[~2024-09-19] VITALS: Ht 157.5 cm; Wt 89.1 kg
[~2024-09-19 06:18] MED LIST changes: -NS 500 ML IV SCH
[2024-09-19] MEDS ORDERED: THALIDOMIDE (06:54)
[2024-09-19] MEDS ORDERED: FAMO20 (06:55)
[2024-09-19] MEDS ORDERED: HYDCHL25 (06:55)
[2024-09-19] MEDS ORDERED: Lactated Ringer's 1,000 ML IV ONE ×2 (07:23→07:40)
[2024-09-19] MEDS ORDERED: propofoL 50 ML IV ONE (07:23)
[2024-09-19] MEDS ORDERED: ePHEDrine Sulfate 50 MG/ML 1ML Injection ONE (08:29)
[2024-09-19 09:29] VITALS: BP 119/81
== END 2024-09-19 09:20 | disposition home or self-care (01) ==
LOC: ORSCSDS 06:18
PROVIDERS: Internal Medicine Gastroenterology
PROC: 0DB58ZX Excision of Esophagus, Via Natural or Artificial Opening Endoscopic, Diagnostic (ICD-10-PCS; principal; 2024-09-19 08:00)
PROC: 0D757ZZ Dilation of Esophagus, Via Natural or Artificial Opening (ICD-10-PCS; principal; 2024-09-19 08:00)
DX: K20.0 Eosinophilic esophagitis (principal); I12.9 Hypertensive chronic kidney disease with stage 1 through stage 4 chronic kidney disease, or unspecified chronic kidney disease; N18.30 Chronic kidney disease, stage 3 unspecified; K44.9 Diaphragmatic hernia without obstruction or gangrene; F17.210 Nicotine dependence, cigarettes, uncomplicated; Z79.899 Other long term (current) drug therapy
CPT/HCPCS: 88305; J2704; J7120

== ENCOUNTER 2025-01-22 10:05 | Day surgery (SDC) | payer BC ==
[~2025-01-22] VITALS: Ht 157.5 cm; Wt 87.4 kg
[~2025-01-22 10:05] MED LIST changes: +FAMO20; +HYDCHL25; +Lactated Ringer's 1,000 ML IV ONE; +THALIDOMIDE; +propofoL 50 ML IV ONE
[2025-01-22] MEDS ORDERED: PREG75 (11:01)
[2025-01-22] MEDS ORDERED: ATOR10 (11:01)
[2025-01-22] MEDS ORDERED: Lactated Ringer's 1,000 ML IV ONE (11:40)
[2025-01-22 13:16] VITALS: BP 91/69
== END 2025-01-22 12:47 | disposition home or self-care (01) ==
LOC: ORSCSDS 10:05
PROVIDERS: Specialist
PROC: 0DB58ZX Excision of Esophagus, Via Natural or Artificial Opening Endoscopic, Diagnostic (ICD-10-PCS; principal; 2025-01-22 11:30)
PROC: 0D758ZZ Dilation of Esophagus, Via Natural or Artificial Opening Endoscopic (ICD-10-PCS; principal; 2025-01-22 11:30)
DX: K20.0 Eosinophilic esophagitis (principal); R13.10 Dysphagia, unspecified; I12.9 Hypertensive chronic kidney disease with stage 1 through stage 4 chronic kidney disease, or unspecified chronic kidney disease; K44.9 Diaphragmatic hernia without obstruction or gangrene; N18.30 Chronic kidney disease, stage 3 unspecified; J44.9 Chronic obstructive pulmonary disease, unspecified; K21.9 Gastro-esophageal reflux disease without esophagitis; Z87.11 Personal history of peptic ulcer disease; Z87.891 Personal history of nicotine dependence; Z79.899 Other long term (current) drug therapy
CPT/HCPCS: 88305; C1769; J2704; J7120

== ENCOUNTER 2025-08-11 06:20 | Day surgery (SDC) | payer BC ==
[~2025-08-11] VITALS: Ht 157.5 cm; Wt 97.9 kg
[~2025-08-11 06:20] MED LIST changes: +ATOR10; -Lactated Ringer's 1,000 ML IV ONE; +PREG75; -propofoL 50 ML IV ONE
[2025-08-11] MEDS ORDERED: DUPIXENT300 MG/21 (06:43)
[2025-08-11 09:15] VITALS: BP 112/71
== END 2025-08-11 09:00 | disposition home or self-care (01) ==
LOC: ORSCSDS 06:20
PROVIDERS: Specialist
PROC: 0DB58ZX Excision of Esophagus, Via Natural or Artificial Opening Endoscopic, Diagnostic (ICD-10-PCS; principal; 2025-08-11 08:00)
DX: K20.0 Eosinophilic esophagitis (principal); K44.9 Diaphragmatic hernia without obstruction or gangrene; K21.9 Gastro-esophageal reflux disease without esophagitis; R13.10 Dysphagia, unspecified; I12.9 Hypertensive chronic kidney disease with stage 1 through stage 4 chronic kidney disease, or unspecified chronic kidney disease; N18.30 Chronic kidney disease, stage 3 unspecified; J44.9 Chronic obstructive pulmonary disease, unspecified; Z79.899 Other long term (current) drug therapy; Z87.891 Personal history of nicotine dependence
CPT/HCPCS: 88305; J2704; J7120